=== PATIENT | female | born 1995 | race Caucasian/White ===

== ENCOUNTER 2022-02-14 00:02 | Outpatient (CLI) | payer OTHER | END 2022-02-14 01:06 | disposition home or self-care (01) | LOC: GENOP 00:02 | DX: O26.852 Spotting complicating pregnancy, second trimester (principal); O99.342 Other mental disorders complicating pregnancy, second trimester; F41.9 Anxiety disorder, unspecified; O99.332 Smoking (tobacco) complicating pregnancy, second trimester; F17.290 Nicotine dependence, other tobacco product, uncomplicated; Z3A.24 24 weeks gestation of pregnancy | CPT/HCPCS: 81001; G0463 ==

== ENCOUNTER 2022-05-31 16:59 | Inpatient (IN) | payer OTHER ==
[~2022-05-31] VITALS: Ht 160 cm; Wt 69.4 kg
[2022-05-31] MEDS ORDERED: LEXAPRO10 MG PO (18:32)
[2022-05-31 18:59] LABS: HEMOGLOBIN 10.1 gm/dl (12.3-15.3); RED BLOOD COUNT 4.19 M/UL (4.00-5.10)
[2022-06-02] MEDS ORDERED: COLACE100 MG PO (09:24)
[2022-06-02] MEDS ORDERED: FERROUS SULFAT325 MG PO (09:24)
[2022-06-02] MEDS ORDERED: IBUPROFEN600 MG PO (09:24)
== END 2022-06-02 18:24 | disposition home or self-care (01) | DRG 806 ==
LOC: GENOP 16:59 → OB 17:58
PROVIDERS: Obstetrics & Gynecology; ADMIT Obstetrics & Gynecology
PROC: 4A1HXCZ Monitoring of Products of Conception, Cardiac Rate, External Approach (ICD-10-PCS; 2022-05-31)
PROC: 10E0XZZ Delivery of Products of Conception, External Approach (ICD-10-PCS; principal; 2022-06-01)
PROC: 3E033VJ Introduction of Other Hormone into Peripheral Vein, Percutaneous Approach (ICD-10-PCS; 2022-06-01)
PROC: 0UQMXZZ Repair Vulva, External Approach (ICD-10-PCS; 2022-06-01)
PROC: 10H073Z Insertion of Monitoring Electrode into Products of Conception, Via Natural or Artificial Opening (ICD-10-PCS; 2022-06-01)
PROC: 10H07YZ Insertion of Other Device into Products of Conception, Via Natural or Artificial Opening (ICD-10-PCS; 2022-06-01)
DX: O99.344 Other mental disorders complicating childbirth (principal); D62 Acute posthemorrhagic anemia; Z37.0 Single live birth; Z3A.39 39 weeks gestation of pregnancy; F41.9 Anxiety disorder, unspecified; O99.334 Smoking (tobacco) complicating childbirth; F17.290 Nicotine dependence, other tobacco product, uncomplicated; O99.02 Anemia complicating childbirth; O70.0 First degree perineal laceration during delivery; O99.824 Streptococcus B carrier state complicating childbirth; Z28.310 Unvaccinated for COVID-19; Z81.8 Family history of other mental and behavioral disorders
CPT/HCPCS: 36415; 81001; 82800; 85014; 85018; 85025; 85461; 86850; 86900; 86901; J2590; J2790